=== PATIENT | female | born 1995 | race Caucasian/White ===

== ENCOUNTER 2022-03-02 18:37 | Emergency (ER) | payer OTHER ==
[2022-03-02 18:55] VITALS: BP 105/70; PULSE 83; RESP 16; TEMP 98.5; BMI 21.2
[2022-03-02] MEDS ORDERED: SODIUM CHLORIDE 0.9% 500 ML INFUS.BAG IV ONE (19:59)
[2022-03-02] MEDS ORDERED: ONDANSETRON 4 MG/2 ML VIAL IVPUSH ONE (19:59)
[2022-03-02 20:28] LABS: BASO % 1.1 % (0-2.0); EOS % 1.4 % (0-4.5); HEMATOCRIT 33.8 % (32.4-45.2); HEMOGLOBIN 10.8 GM/dL (10.7-15.3); LYMPH % 24.3 % (8-40); MCH 23.8 pg (25.7-33.7); MCHC 32.1 g/dl (32.0-36.0); MEAN PLT VOLUME 8.9 fl (7.5-11.1); NEUT % 65.2 % (42.8-82.8); PLATELET COUNT 348 10^3/uL (134-434); RBC 4.56 M/mm3 (3.60-5.2); RDW 16.8 % (11.6-15.6)
[2022-03-02 20:51] LABS: CALCIUM 9.4 mg/dL (8.5-10.1)
[2022-03-02 20:52] LABS: BLOOD UREA NITROGEN 6.8 mg/dL (7-18); MAGNESIUM 2.3 mg/dL (1.8-2.4)
[2022-03-02 20:55] LABS: CREATININE 0.9 mg/dL (0.55-1.3)
[2022-03-02 20:56] LABS: BILIRUBIN,TOTAL 0.1 mg/dL (0.2-1); TOT PROT 7.4 g/dl (6.4-8.2)
[2022-03-02 21:25] LABS: PH,URINE 5.5 (5.0-8.0); URINE APPEARANCE CLEAR; URINE BILIRUBIN NEGATIVE (NEGATIVE); URINE COLOR YELLOW; URINE GLUCOSE (UA) NEGATIVE (NEGATIVE); URINE KETONE TRACE (NEGATIVE); URINE LEUK ESTERASE NEGATIVE (NEGATIVE); URINE NITRITE NEGATIVE (NEGATIVE); URINE PROTEIN NEGATIVE (NEGATIVE)
[2022-03-02 21:52] LABS: HCG,QUALITATIVE URINE Negative
== END 2022-03-02 23:30 | disposition home or self-care (01) ==
LOC: JER 18:37 → JERFT 18:37
PROC: 3E033NZ Introduction of Analgesics, Hypnotics, Sedatives into Peripheral Vein, Percutaneous Approach (ICD-10-PCS; principal; 2022-03-02)
DX: R42 Dizziness and giddiness (principal)
CPT/HCPCS: 0241U-QW; 36415; 80053; 81003; 83735; 84703; 85025; 87086; 93005; 93010; 96374; 99284-25

== ENCOUNTER 2022-07-17 21:34 | Inpatient (IN) | payer OTHER ==
[2022-07-17] MEDS ORDERED: DEXAMETHASONE SOD PHOSPHATE 10 MG/1 ML VIAL IVPUSH ONE (22:45)
[2022-07-17] MEDS ORDERED: ACETAMINOPHEN 1000 MG/100 ML BAG IVPB ONE (22:53)
[2022-07-17] MEDS ORDERED: CLINDAMYCIN 600MG PREMIX IVPB 600 MG/50 ML BAG IVPB ONE ×2 (22:53→23:13)
[2022-07-17] MEDS ORDERED: DEXAMETHASONE SOD PHOSPHATE 10 MG/1 ML VIAL ONE (23:12)
[2022-07-17] MEDS ORDERED: ACETAMINOPHEN INJECTION 100 ML IVPB ONE (23:12)
[2022-07-17 23:51] LABS: BASO % 0.2 % (0-2.0); EOS % 0.8 % (0-4.5); HEMATOCRIT 32.2 % (32.4-45.2); HEMOGLOBIN 10.3 GM/dL (10.7-15.3); LYMPH % 7.3 % (8-40); MCH 23.5 pg (25.7-33.7); MEAN CELL VOLUME 73.4 fl (80-96); MONO % 5.1 % (3.8-10.2); NEUT % 86.6 % (42.8-82.8); PLATELET COUNT 269 10^3/uL (134-434); RBC 4.38 M/mm3 (3.60-5.2); RDW 16.8 % (11.6-15.6); WHITE BLOOD COUNT 14.1 K/mm3 (4.0-10.0)
[2022-07-18 00:14] LABS: BLOOD UREA NITROGEN 7.9 mg/dL (7-18); CALCIUM 8.7 mg/dL (8.5-10.1)
[2022-07-18 00:15] LABS: ALBUMIN 3.8 g/dl (3.4-5.0)
[2022-07-18 00:19] LABS: BILIRUBIN,TOTAL 0.2 mg/dL (0.2-1)
[2022-07-18] MEDS ORDERED: VANCOMYCIN 1 GM in D5W (PRE-DOCKED) 1,000 MG/250 ML IVPB ONE (00:29)
[2022-07-18] MEDS ORDERED: CEFEPIME HCL/D5W 1 GM/50 ML BAG IVPB ONE (00:29)
[2022-07-18] MEDS ORDERED: CEFEPIME 1 GM/100 ML BAG IVPB ONE (00:31)
[2022-07-18 00:45] LABS: CREATININE 0.8 mg/dL (0.55-1.3); TOT PROT 7.3 g/dl (6.4-8.2)
[2022-07-18] MEDS ORDERED: VANCOMYCIN/WATER FOR INJ (PEG) 1,000 MG/200 ML BAG IVPB ONE (01:07)
[2022-07-18] MEDS ORDERED: diphenhydrAMINE HCL 25 MG CAPSULE (FP) PO PRN (03:49)
[2022-07-18] MEDS ORDERED: ACETAMINOPHEN 325 MG TABLET (FP) PO PRN (03:49)
[2022-07-18 06:38] LABS: HEMOGLOBIN 10.4 GM/dL (10.7-15.3); MCHC 32.5 g/dl (32.0-36.0); MEAN CELL VOLUME 73.6 fl (80-96); MEAN PLT VOLUME 9.3 fl (7.5-11.1); PLATELET COUNT 264 10^3/uL (134-434); RBC 4.34 M/mm3 (3.60-5.2); RDW 16.8 % (11.6-15.6); WHITE BLOOD COUNT 14.7 K/mm3 (4.0-10.0)
[2022-07-18 06:43] LABS: INR 1.17 (0.83-1.09); PROTHROMBIN TIME (PATIENT) 13.6 SEC (9.7-13.0)
[2022-07-18 06:51] LABS: CALCIUM 8.7 mg/dL (8.5-10.1)
[2022-07-18 06:52] LABS: ALBUMIN 3.6 g/dl (3.4-5.0); BLOOD UREA NITROGEN 5.6 mg/dL (7-18)
[2022-07-18 06:55] LABS: CREATININE 0.8 mg/dL (0.55-1.3); PHOSPHOROUS 2.9 mg/dL (2.5-4.9)
[2022-07-18 06:56] LABS: BILIRUBIN,TOTAL 0.3 mg/dL (0.2-1)
[2022-07-18] MEDS ORDERED: ENOXAPARIN NA (PORCINE) 40 MG/0.4 ML DISP.SYRIN SQ ONE (08:45)
[2022-07-18] MEDS ORDERED: CLINDAMYCIN 600MG PREMIX IVPB 600 MG/50 ML BAG IVPB ONE (08:45)
[2022-07-18] MEDS ORDERED: PIPERACILLIN/TAZOB 3.375 GM 3.375 GM/50 ML BAG IVPB ONE (08:46)
[2022-07-18] MEDS ORDERED: CLINDAMYCIN 600MG PREMIX IVPB 600 MG/50 ML BAG IVPB SCH (10:00)
[2022-07-18] MEDS ORDERED: PIPERACILLIN/TAZOB 3.375 GM 3.375 GM in DEXTROSE 5%-WATER - 50 ML IVPB SCH (10:00)
[2022-07-18 10:26] LABS: RETICULOCYTES 0.99 % (0.5-1.5)
[2022-07-18] MEDS: ENOXAPARIN NA (PORCINE) 40 MG/0.4 ML DISP.SYRIN SQ SCH (10:42)
[2022-07-18] MEDS: diphenhydrAMINE HCL 25 MG CAPSULE (FP) PO PRN (11:47)
[2022-07-18 13:01] VITALS: BMI 20.6
[2022-07-18] MEDS: VANCOMYCIN/WATER FOR INJ (PEG) 1,000 MG/200 ML BAG IVPB SCH (13:08)
[2022-07-18] MEDS ORDERED: DOCUSATE SODIUM 100 MG CAPSULE (FP) PO PRN (14:34)
[2022-07-18 20:33] LABS: EPI CELLS 18 /uL (0-25.1); HYALINE CASTS 1 /uL (0-3.1); URINE APPEARANCE CLEAR; URINE BACTERIA 1236 /uL (0-1359); URINE BILIRUBIN NEGATIVE (NEGATIVE); URINE COLOR YELLOW; URINE GLUCOSE (UA) NEGATIVE (NEGATIVE); URINE KETONE NEGATIVE (NEGATIVE); URINE LEUK ESTERASE TRACE (NEGATIVE); URINE NITRITE NEGATIVE (NEGATIVE); URINE PROTEIN NEGATIVE (NEGATIVE); URINE RBC 16 /uL (0-23.9); URINE UROBILINOGEN 0.2 mg/dL (0.2-1.0); URINE WBC 34 /uL (0-25.8)
[2022-07-19] MEDS: VANCOMYCIN/WATER FOR INJ (PEG) 1,000 MG/200 ML BAG IVPB SCH ×2 (00:38→12:18)
[2022-07-19] MEDS: diphenhydrAMINE HCL 25 MG CAPSULE (FP) PO PRN ×2 (00:56→22:30)
[2022-07-19] MEDS: LORATADINE 10 MG TABLET PO SCH (09:55)
[2022-07-19] MEDS: CEFTRIAXONE 1 GM in DEXTROSE 5%-WATER - 50 ML IVPB SCH (09:56)
[2022-07-19] MEDS: ENOXAPARIN NA (PORCINE) 40 MG/0.4 ML DISP.SYRIN SQ SCH ×2 (09:57→10:08)
[2022-07-19] MEDS ORDERED: PIPERACILLIN/TAZOB 3.375 GM 3.375 GM in DEXTROSE 5%-WATER - 50 ML IVPB SCH (10:00)
[2022-07-19 10:25] LABS: BASO % 0.3 % (0-2.0); EOS % 6.3 % (0-4.5); HEMATOCRIT 31.7 % (32.4-45.2); HEMOGLOBIN 10.3 GM/dL (10.7-15.3); LYMPH % 19.7 % (8-40); MCHC 32.4 g/dl (32.0-36.0); MEAN PLT VOLUME 9.7 fl (7.5-11.1); MONO % 6.5 % (3.8-10.2); NEUT % 67.2 % (42.8-82.8); PLATELET COUNT 273 10^3/uL (134-434); RBC 4.28 M/mm3 (3.60-5.2); RDW 16.9 % (11.6-15.6); WHITE BLOOD COUNT 9.6 K/mm3 (4.0-10.0)
[2022-07-19 10:50] LABS: ALBUMIN 3.5 g/dl (3.4-5.0); BILIRUBIN,TOTAL 0.2 mg/dL (0.2-1); BLOOD UREA NITROGEN 5.9 mg/dL (7-18); CALCIUM 8.5 mg/dL (8.5-10.1)
[2022-07-19 10:53] LABS: TOT PROT 6.8 g/dl (6.4-8.2)
[2022-07-19 10:54] LABS: CREATININE 0.7 mg/dL (0.55-1.3)
[2022-07-19] MEDS: HYDROCORTISONE 1% TOPICAL CREAM 30 GM TUBE TP SCH ×2 (14:35→22:30)
[2022-07-20] MEDS: VANCOMYCIN/WATER FOR INJ (PEG) 1,000 MG/200 ML BAG IVPB SCH ×2 (01:19→13:33)
[2022-07-20] MEDS: HYDROCORTISONE 1% TOPICAL CREAM 30 GM TUBE TP SCH ×2 (07:08→13:32)
[2022-07-20 09:05] LABS: BASO % 0.2 % (0-2.0); EOS % 9.7 % (0-4.5); HEMATOCRIT 30.6 % (32.4-45.2); HEMOGLOBIN 10.1 GM/dL (10.7-15.3); LYMPH % 26.6 % (8-40); MCH 24.4 pg (25.7-33.7); MEAN CELL VOLUME 73.9 fl (80-96); MEAN PLT VOLUME 9.5 fl (7.5-11.1); MONO % 5.9 % (3.8-10.2); NEUT % 57.6 % (42.8-82.8); PLATELET COUNT 259 10^3/uL (134-434); RBC 4.14 M/mm3 (3.60-5.2); RDW 16.7 % (11.6-15.6); WHITE BLOOD COUNT 7.4 K/mm3 (4.0-10.0)
[2022-07-20 09:08] LABS: ALBUMIN 3.2 g/dl (3.4-5.0); BLOOD UREA NITROGEN 8.1 mg/dL (7-18); CALCIUM 8.7 mg/dL (8.5-10.1)
[2022-07-20 09:12] LABS: CREATININE 0.6 mg/dL (0.55-1.3)
[2022-07-20 09:13] LABS: BILIRUBIN,TOTAL 0.3 mg/dL (0.2-1)
[2022-07-20 09:14] LABS: TOT PROT 6.5 g/dl (6.4-8.2)
[2022-07-20] MEDS: CEFTRIAXONE 1 GM in DEXTROSE 5%-WATER - 50 ML IVPB SCH (10:11)
[2022-07-20] MEDS: LORATADINE 10 MG TABLET PO SCH (10:11)
[2022-07-20 12:54] VITALS: RESP 18
[2022-07-20 14:27] VITALS: BP 129/81; PULSE 91; TEMP 98.9
[2022-07-20] MEDS ORDERED: IRON SUCROSE INJECTION 200 MG in SODIUM CHLORIDE 90 ML IVPB ONE (15:00)
== END 2022-07-20 18:18 | disposition home or self-care (01) | DRG 383 ==
LOC: JERFT 21:34 → UNDOADMOB 07-18 02:04 → INTOOBSV 07-18 02:04 → JERBED 07-18 02:04 → J6S 07-18 03:49 → JERBED 07-18 09:04 → OBSVTOIN 07-19 13:52
PROVIDERS: ADMIT Internal Medicine; ATTEND Internal Medicine
DX: L03.113 Cellulitis of right upper limb (principal); D50.9 Iron deficiency anemia, unspecified
CPT/HCPCS: 0241U-QW; 36415; 73090-TC-RT-FY; 73130-TC-RT-FY; 73201-TC-RT; 80053; 81003; 82550; 82728; 83540; 83550; 83605; 83615; 83735; 84100; 84703; 85025; 85045; 85610; 86038; 86140; 87040; 93005; 93010; 99285-25; G0378; G0480; J1100; J1756

== ENCOUNTER 2023-03-18 20:48 | Emergency (ER) | payer OTHER ==
[2023-03-18 20:58] VITALS: BMI 22.3
[2023-03-18] MEDS ORDERED: SODIUM CHLORIDE 0.9% 500 ML INFUS.BAG IV ONE (21:16)
[2023-03-18] MEDS ORDERED: ACETAMINOPHEN 1000 MG/100 ML BAG IVPB ONE (21:16)
[2023-03-18] MEDS ORDERED: DEXAMETHASONE SOD PHOSPHATE 10 MG/1 ML VIAL IVPUSH ONE (21:16)
[2023-03-18] MEDS ORDERED: ACETAMINOPHEN INJECTION 100 ML IVPB ONE (21:49)
[2023-03-18] MEDS ORDERED: DEXAMETHASONE SOD PHOSPHATE 10 MG/1 ML VIAL ONE (21:49)
[2023-03-18 22:26] LABS: BASO % 0.9 % (0-2.0); EOS % 2.1 % (0-4.5); HEMATOCRIT 36.5 % (32.4-45.2); HEMOGLOBIN 11.7 GM/dL (10.7-15.3); LYMPH % 25.1 % (8-40); MCH 24.4 pg (25.7-33.7); MCHC 32.1 g/dl (32.0-36.0); MEAN CELL VOLUME 76.2 fl (80-96); MEAN PLT VOLUME 9.2 fl (7.5-11.1); MONO % 5.9 % (3.8-10.2); PLATELET COUNT 369 10^3/uL (134-434); RBC 4.79 M/mm3 (3.60-5.2); RDW 15.4 % (11.6-15.6); WHITE BLOOD COUNT 10.2 K/mm3 (4.0-10.0)
[2023-03-18 22:51] LABS: CHLORIDE 106 mmol/L (98-107); SODIUM 136 mmol/L (136-145)
[2023-03-18 22:53] LABS: CALCIUM 8.9 mg/dL (8.5-10.1); GLUCOSE,RANDOM 83 mg/dL (74-106)
[2023-03-18 22:54] LABS: ANION GAP 5 mmol/L (4-13); CO2 25 mmol/L (21-32)
[2023-03-18 22:57] LABS: CREATININE 0.8 mg/dL (0.55-1.3); SGOT/AST 45 U/L (15-37); SGPT/ALT 21 U/L (13-61)
[2023-03-18 22:58] LABS: BILIRUBIN,TOTAL 0.4 mg/dL (0.2-1); TOT PROT 7.8 g/dl (6.4-8.2)
[2023-03-18 22:59] LABS: ALK PHOS 71 U/L (45-117)
[2023-03-18] MEDS ORDERED: KETOROLAC TROMETHAMINE 30 MG/1 ML VIAL IVPUSH ONE (23:02)
[2023-03-18] MEDS ORDERED: METOCLOPRAMIDE HCL INJECTION 10 MG/2 ML VIAL IVPUSH ONE (23:02)
[2023-03-18] MEDS ORDERED: METOCLOPRAMIDE HCL INJECTION 10 MG/2 ML VIAL ONE (23:11)
[2023-03-18] MEDS ORDERED: KETOROLAC TROMETHAMINE 30 MG/1 ML VIAL ONE (23:11)
[2023-03-18 23:17] LABS: ERYTHROCYTE SEDIMENTATION RATE 7 mm/hr (0-20)
[2023-03-19 01:58] LABS: PH,URINE 5.5 (5.0-8.0); URINE APPEARANCE CLEAR; URINE BILIRUBIN NEGATIVE (NEGATIVE); URINE COLOR YELLOW; URINE GLUCOSE (UA) NEGATIVE (NEGATIVE); URINE KETONE TRACE (NEGATIVE); URINE LEUK ESTERASE NEGATIVE (NEGATIVE); URINE NITRITE NEGATIVE (NEGATIVE); URINE PROTEIN NEGATIVE (NEGATIVE); URINE UROBILINOGEN 0.2 mg/dL (0.2-1.0)
[2023-03-19 02:17] VITALS: BP 103/63; PULSE 84; RESP 16; TEMP 98.5
== END 2023-03-19 02:31 | disposition home or self-care (01) ==
LOC: JER 20:48
PROC: 3E033NZ Introduction of Analgesics, Hypnotics, Sedatives into Peripheral Vein, Percutaneous Approach (ICD-10-PCS; principal; 2023-03-18)
PROC: 3E033GC Introduction of Other Therapeutic Substance into Peripheral Vein, Percutaneous Approach (ICD-10-PCS; 2023-03-18)
PROC: 3E0333Z Introduction of Anti-inflammatory into Peripheral Vein, Percutaneous Approach (ICD-10-PCS; 2023-03-18)
PROC: 3E033GC Introduction of Other Therapeutic Substance into Peripheral Vein, Percutaneous Approach (ICD-10-PCS; 2023-03-18)
DX: R53.1 Weakness (principal); R51.9 Headache, unspecified; H53.71 Glare sensitivity; F40.298 Other specified phobia; G43.909 Migraine, unspecified, not intractable, without status migrainosus; R20.2 Paresthesia of skin
CPT/HCPCS: 36415; 70450-TC; 80053; 81003; 84703; 85025; 85651; 86140; 99284-25; J1100